=== PATIENT | female | born 1960 | race Caucasian/White ===

== ENCOUNTER 2017-02-09 14:24 | Emergency (ER) | payer SELFPAY ==
[2017-02-09 14:58] VITALS: BP 168/91
[2017-02-09] MEDS ORDERED: Tetracaine 0.5% OPTH.SOL 4 ML* 1 DROP BTL ONE (15:24)
[2017-02-09] MEDS ORDERED: Fluorescein Sodium TOPICAL* 1 MG TEST OPHTHALMIC ONE ×2 (15:34→17:28)
[2017-02-09] MEDS ORDERED: Artificial Tears* 15 ML BTL RIGHT EYE ONE (15:50)
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
[2017-02-09] MEDS ORDERED: Ibuprofen TAB* 600 MG PO ONE (16:35)
[2017-02-09] MEDS ORDERED: Fluorescein Sodium TOPICAL* 1 MG TEST ONE (17:29)
[2017-02-09] MEDS ORDERED: Polymyx/Trimethoprim OPTH* 10 ML BTL RIGHT EYE ONE (17:45)
[2017-02-09] MEDS ORDERED: Erythromycin OPTH OINT* APPLIC OINT RIGHT EYE ONE (17:59)
[2017-02-09] MEDS ORDERED: Ondansetron ODT TAB* 4 MG PO ONE ×3 (18:00→18:21)
[2017-02-09] MEDS ORDERED: HYDROcodone/ACETAMIN 5-325 MG* 1 TAB PO ONE ×3 (18:00→18:20)
== END 2017-02-09 18:52 | disposition home or self-care (01) ==
LOC: UCEAST 14:24
DX: T26.11XA Burn of cornea and conjunctival sac, right eye, initial encounter (principal); Z77.098 Contact with and (suspected) exposure to other hazardous, chiefly nonmedicinal, chemicals; Y93.E9 Activity, other interior property and clothing maintenance; Y92.89 Other specified places as the place of occurrence of the external cause
CPT/HCPCS: 99203; A9270-GY; G0463